=== PATIENT | female | born 1985 | race Two or more races ===

== ENCOUNTER 2022-04-15 10:52 | Observation (INO) | payer SELFPAY ==
[~2022-04-15] VITALS: Ht 167.6 cm; Wt 74.0 kg
[2022-04-15 11:51] LABS: HEMATOCRIT. 36.8 % (36.0-48.0); HEMOGLOBIN. 12.6 g/dL (12.0-16.0); MEAN CORPUSCULAR HEMOGLOBIN 32.1 pg (28.0-32.0); MEAN CORPUSCULAR VOLUME 93.9 fL (81.0-99.0); MEAN PLATELET VOLUME 7.2 fl (7.4-10.4); PLATELET 202 x1000/uL (130-400); RED BLOOD CELL COUNT 3.91 mill/uL (4.2-5.4); RED CELL DISTRIBUTION WIDTH 12.5 % (11.6-14.6)
[2022-04-15 11:57] LABS: CHLORIDE 106 mEq/L (98-107)
[2022-04-15 12:04] LABS: ETHANOL BLOOD < 10 mg/dL
[2022-04-15 12:14] LABS: PLATELET ESTIMATE NORMAL
[2022-04-15 12:31] LABS: CLARITY URINE CLEAR (CLEAR); COLOR URINE YELLOW (YELLOW); KETONES URINE NEGATIVE (NEGATIVE); LEUKOCYTE ESTERASE URINE 1+ (NEGATIVE); NITRITE URINE NEGATIVE (NEGATIVE); OCCULT BLOOD URINE NEGATIVE (NEGATIVE); PH URINE 7.5 (4.5-8.0); PROTEIN URINE NEGATIVE (NEGATIVE); SPECIFIC GRAVITY URINE 1.006 (1.005-1.030); UROBILINOGEN URINE 0.2 E.U./dL (0.2-1.0)
[2022-04-15 13:45] VITALS: BP 102/62
[2022-04-15] MEDS ORDERED: ACETAMINOPHEN 325MG TABLET PO NR (15:30)
[2022-04-15] MEDS ORDERED: LACTATED RINGERS 1,000 ML IV SCH (15:30)
[2022-04-15] MEDS ORDERED: ACETAMINOPHEN 500MG TABLET PO NR (16:00)
[2022-04-15] MEDS ORDERED: CEFAZOLIN 2,000 MG in DEXT 5% WATER 100 ML IV SCH (16:45)
[2022-04-15 17:30] LABS: HEPATITIS B SURFACE ANTIGEN NEGATIVE
== END 2022-04-15 17:50 | disposition home or self-care (01) ==
LOC: ER 10:52 → 8 EST LDRP 11:51
PROVIDERS: ADMIT Obstetrics & Gynecology; ATTEND Obstetrics & Gynecology
DX: O99.353 Diseases of the nervous system complicating pregnancy, third trimester (principal); R55 Syncope and collapse; G40.909 Epilepsy, unspecified, not intractable, without status epilepticus; R42 Dizziness and giddiness; O62.9 Abnormality of forces of labor, unspecified; Z3A.28 28 weeks gestation of pregnancy
CPT/HCPCS: 36415; 59025; 76805; 80053; 80320; 81003; 82962; 85025; 86592; 86762; 87340; 93005; 96360; 96361; 96365; 99281; 99285; G0378; J0690; J7060; J7120; G0480